=== PATIENT | male | born 1955 | race Caucasian/White ===

== ENCOUNTER 2017-02-27 19:14 | Emergency (ER) | payer BC ==
[2017-02-27] MEDS ORDERED: Bacitracin Zinc 1 Packet ONE ×2 (19:33)
--- NOTE | 2017-02-28 07:19 | CT ---
CT OF THE BRAIN WITHOUT CONTRAST 02/27/2017 A non-contrast CT was done emergently following trauma. The ventricles are normal in size with no s hift. No intracranial bleeding or extraaxial hematoma was seen. There is no sign of mass or stroke . The calvarium appears intact. There are no air fluid levels in the sphenoid sinus, and the masto id air cells are clear. See CT of the face regarding the paranasal sinuses. IMPRESSION: No acute intracranial findings. POS: HOME
--- NOTE | 2017-02-28 07:24 | CT ---
CT OF THE FACIAL BONES 02/27/[address] of the face was performed following trauma. Axial slices were acquired, and then coronal and sagittal reconstructions were done. Both of this patient's lateral incisors in the maxilla protrude somewhat, but the right side more so than the left which I understand is the site of trauma. The maxilla itself appeared intact with no sign of fracture. The zygomatic arches, orbital rims, and mandible appear intact. There is no acu te nasal fracture. The nasal septum is significantly deviated to the left, presumably a chronic fin ding. There is extensive sinus disease with mucosal thickening throughout the ethmoid sinuses in particula r, as well as the maxillary sinuses. A 1.2 cm rounded density in the left side of the sphenoid sinu s is probably a retention cyst. Retroorbital areas appear normal. IMPRESSION: 1. No acute facial fractures. 2. The right lateral incisor in the maxilla protrudes but more than the left, and this could be due to acute trauma. 3. Deviation of the nasal septum as noted. 4. Extensive sinus disease as stated above. POS: HOME
--- NOTE | 2017-02-28 07:31 | CT ---
CT OF THE CERVICAL SPINE 02/27/[address] of the cervical spine was performed for evaluation following trauma. Axial slices were ac quired and then coronal and sagittal reconstructions were done. No overt fracture or dislocation was seen. The spinal alignment is normal. Disk space narrowing is present at C5-C6. There is a little dip in the superior endplate of T1 that I do not believe is ac graciela. Prominent anterior osteophytes are present, particularly below the C5 level. The largest is a t the C7-T1 level. Findings by level follow: C1-C2: No acute findings. C2-C3: No acute findings. C3-C4: Minor left foraminal narrowing. C4-C5: Mild left foraminal narrowing due to osteophyte. C5-C6: Mild left foraminal narrowing. C6-C7: No acute findings. C7-T1: No acute findings. Large anterior osteophyte. Lung apices are clear and show no pneumothorax. The C1 to dens distance is normal, and the soft tis sues are normal in thickness. IMPRESSION: Degenerative changes as noted, but no acute traumatic findings. POS: HOME
== END 2017-02-27 20:35 | disposition home or self-care (01) ==
LOC: BURERS 19:14
DX: S03.2XXA Dislocation of tooth, initial encounter (principal); S00.83XA Contusion of other part of head, initial encounter; S40.811A Abrasion of right upper arm, initial encounter; F10.129 Alcohol abuse with intoxication, unspecified; W17.89XA Other fall from one level to another, initial encounter
CPT/HCPCS: 70450; 70486; 72125

== ENCOUNTER 2019-02-26 10:06 | Emergency (ER) | payer BC ==
[2019-02-26] MEDS ORDERED: Ketorolac Tromethamine 60 MG/2 ML VIAL ONE (10:46)
--- NOTE | 2019-02-26 10:59 | CT ---
CT BRAIN WITHOUT CONTRAST: Date: 02/26/19 A soft tissue hematoma and laceration is seen over the scalp anteriorly on the right side. The underl murphy skull appears intact with no sign of fracture. The ventricles are normal in size and show no mikael ft. No intracranial bleeding or extra-axial hematoma seen. No sign of mass, edema, or stroke. There i s mucosal thickening in many of the paranasal sinuses. Mastoid air cells are clear. IMPRESSION: 1. No acute intracranial findings. 2. Mucosal thickening in the paranasal sinuses, chronic. 3. Incidental finding of nasal septum deviated to left, not a new finding. POS: HOME
== END 2019-02-26 12:08 | disposition home or self-care (01) ==
LOC: BURERS 10:06
DX: S01.01XA Laceration without foreign body of scalp, initial encounter (principal); W22.8XXA Striking against or struck by other objects, initial encounter; Z79.82 Long term (current) use of aspirin
CPT/HCPCS: 12054; 70450; 96372; J1885